=== PATIENT | male | born 1960 | race Caucasian/White ===

== ENCOUNTER 2020-09-18 21:14 | Observation (INO) | payer MEDICARE, MEDICAID, SELFPAY ==
[2020-09-18] VITALS (8 sets, daily range): BP systolic 52–93; BP diastolic 41–59; PULSE 60–76; RESP 15–24; TEMP 36.7–37.1; O2SAT 94–99; BMI 35.6
--- NOTE | 2020-09-18 21:40 | EKG12_ITS ---
Test Reason : DIZZINESS Blood Pressure : / mmHG Vent. Rate : 074 BPM Atrial Rate : 074 BPM P-R Int : 152 ms QRS Dur : 102 ms QT Int : 376 ms P-R-T Axes : 062 031 039 degrees QTc Int : 417 ms Normal sinus rhythm Normal ECG Confirmed by EVELYN REAL, MANUEL ([id number]), video news editor GIN LAROSE ([id number]) on 09/20/2020 1:17:48 PM Referred By: BRENNEN Confirmed By:MANUEL RIVAS MD
--- NOTE | 2020-09-18 21:43 | EDS_ITS ---
HPI History of Present Illness Chief Complaint: Dizziness Informant: patient Narrative Narrative: 60-year-old male presenting with lightheadedness and diaphoresis which he states has been having for about a month. He states it is worse with standing. He states that every night he sweats himself to sleep. He states he is not having any chest pain. He states he is currently residing at a residence where he has been laying in bed for a month. He has decreased p.o. intake. He is unsure if he had a fever. 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 He had a skin graft for this. He is not on any chemotherapy currently. Patient does take narcotic pain medication. Patient also states he takes medication for blood pressure. [facility] Medical History Bulging discs Home Medications fexofenadine [Jocelin] 180 mg PO DAILY 09/18/20 [History Last Taken Unknown] hydrochlorothiazide 25 mg PO DAILY 09/18/20 [History Last Taken Unknown] levothyroxine 50 mcg PO DAILY 09/18/20 [History Last Taken Unknown] lisinopril 20 mg PO DAILY 09/18/20 [History Last Taken Unknown] methocarbamol 500 mg PO TID 09/18/20 [History Last Taken Unknown] oxycodone 10 mg PO Q4H PRN 09/18/20 [History Last Taken Unknown] oxycodone [OxyContin] 10 mg PO BID 09/18/20 [History Last Taken Unknown] pregabalin 200 mg PO BID 09/18/20 [History Last Taken Unknown] Allergy/AdvReac Type Severity Reaction Status Date / Time No Known Allergies Allergy Verified 09/18/20 21:15 Social History Smoking Status: Current every day smoker ROS ROS ED Constitutional Constitutional ED: Reports sweats; Denies fever(s) or weight loss Eyes Eyes: Denies blurry vision or change in vision ENT ENT ED: Denies ear pain or rhinorrhea Cardiovascular Cardiovascular: Reports palpitations and other Details: Lightheadedness. ; Denies chest pain Respiratory/Chest Respiratory/Chest: Reports dyspnea; Denies cough or sputum Gastrointestinal Gastrointestinal: Denies abdominal pain, diarrhea, nausea or vomiting Genitourinary Genitourinary ED: Denies dysuria or hematuria Musculoskeletal Musculoskeletal: Denies arthralgias or myalgias Integumentary Denies abscess or rash Neurologic Neurologic: Denies headache(s), paresthesias or weakness Psychiatric Psychiatric: Denies suicidal ideation or suicidal thoughts Endocrine Endocrinology: Denies polydipsia or polyuria EXAM Physical Exam Const Vital Signs: 09/18/20 21:15 09/18/20 21:29 09/18/20 21:40 Temperature 98.0 F 98.5 F Temperature Source Temporal Oral Pulse Rate 76 74 76 Respiratory Rate 15 24 H 24 H Respiratory Pattern Blood Pressure 65/43 L 52/43 L 75/52 L Blood Pressure Mean 50 46 59 Pulse Ox 98 96 Oxygen Delivery Method Room Air Room Air Room Air Oxygen Flow Rate (L/min) 09/18/20 22:15 09/18/20 23:07 09/18/20 23:08 Temperature 98.5 F 98.8 F 98.8 F Temperature Source Oral Oral Oral Pulse Rate 69 60 60 Respiratory Rate 24 H 20 H 20 H Respiratory Pattern Tachypnea Blood Pressure 68/59 L 86/55 L 86/55 L Blood Pressure Mean 62 65 65 Pulse Ox 94 94 Oxygen Delivery Method Room Air Room Air Oxygen Flow Rate (L/min) 09/18/20 23:34 09/18/20 23:52 Temperature 98.4 F Temperature Source Oral Pulse Rate 61 61 Respiratory Rate 20 H 18 Respiratory Pattern Blood Pressure 93/51 L 71/41 L Blood Pressure Mean 65 51 Pulse Ox 99 99 Oxygen Delivery Method Room Air Nasal Cannula Oxygen Flow Rate (L/min) 2 Positive obese General Appearance ED: diaphoretic; Negative for pallor Nutritional Appearance: obese HEENT Negative for trauma or tenderness Eyes Negative for PERRL or EOMs intact bilaterally Neck Neck Narrative: Large skin graft on the right side of the neck without signs of infection. Chest Wall inspection of chest normal and palpation of chest normal Resp normal respiratory effort and clear to auscultation bilaterally Cardio regular rate and regular rhythm GI normal to inspection, nondistended, normoactive bowel sounds and non-tender Palpation: soft Extremity General Extremety ED: Yes edema; Negative for tenderness General Extremity: edema Neuro oriented x3 and CN's II-XII intact bilaterally Sensorium / Orientation: alert Psych mental status grossly normal Attitude: No agitated Mood & Affect: Negative for tearful Skin no rashes or lesions noted General Skin Exam: Negative for jaundice or pallor MDM MDM MDM Narrative Medical decision making narrative: 60-year-old male presenting for evaluation of lightheadedness. He is found to be hypotensive upon arrival to the ER. He does state on reevaluation that he has been living on and off at 2 different houses. He states that for the about the last month he has been staying at one friend's house sleeping in the living room. He states that he has decreased p.o. intake as he initially stated but he did state that he can eat. He states he still drinking and making urine. He denies chest pain, abdominal pain, fevers. He arrives with his friend that he has been staying with for the last day and he states he was able to eat today. He takes his blood pressure medications at formerly [facility] and has not taken them since last night. EKG is normal sinus rhythm at 74 bpm without signs of ischemic planes or heart block. Chest x-ray is interpreted by myself shows no acute cardiopulmonary process. Radiology does agree. Patient's lab work shows that he has no leukocytosis. Hemoglobin 14.8. Platelets 189. CMP shows normal LFTs and a creatinine of 3.22. This is new. Patient required multiple evaluations due to hypotension and required 3 L of fluids to get him up to 101/69. He feels more comfortable now. CPK is also elevated 64. Lactic acid 2.3. TSH is normal.UA pending on admission. Spoke with hospitalist will admit patient to PCU. Impression: 1. Hypotension 2. Acute renal failure Lab Data Labs: Laboratory Results - last 24 hr 09/18/20 09/18/20 09/18/20 21:42 21:42 21:42 WBC 6.4 RBC 5.15 Hgb 14.8 Hct 44.4 MCV 86.2 MCH 28.7 MCHC 33.3 RDW Std Deviation 47.0 H RDW Coeff of Waldo 14.7 H Plt Count 189 MPV 12.0 Immature Gran % (Auto) 0.500 Neut % (Auto) 79.3 H Lymph % (Auto) 8.4 L Swisher % (Auto) 11.1 H Eos % (Auto) 0.2 Baso % (Auto) 0.5 Absolute Neuts (auto) 5.1 Absolute Lymphs (auto) 0.54 L Nucleated RBC % 0 Differential Comment SCANNED PT 12.4 INR 1.0 APTT 35.0 Sodium Cancelled Potassium Cancelled Chloride Cancelled Carbon Dioxide Cancelled Anion Gap Cancelled BUN Cancelled Creatinine Cancelled Estim Creat Clear Calc Cancelled Est GFR (MDRD) Af Amer Cancelled Est GFR (MDRD) Non-Af Cancelled BUN/Creatinine Ratio Cancelled Glucose Cancelled Lactic Acid Calcium Cancelled Total Bilirubin Cancelled AST Cancelled ALT Cancelled Alkaline Phosphatase Cancelled Total Creatine Kinase Troponin I Cancelled Total Protein Cancelled Albumin Cancelled Globulin Cancelled Albumin/Globulin Ratio Cancelled TSH Cancelled Urine Opiates Screen Urine Methadone Screen Ur Barbiturates Screen Ur Phencyclidine Scrn Ur Amphetamines Screen U Methamphetamin-MDMA U Benzodiazepines Scrn Urine Cocaine Screen U Cannabinoids Screen Ur Drug Screen Comment Ethyl Alcohol 09/18/20 09/18/20 09/18/20 21:42 21:42 22:30 WBC RBC Hgb Hct MCV MCH MCHC RDW Std Deviation RDW Coeff of Waldo Plt Count MPV Immature Gran % (Auto) Neut % (Auto) Lymph % (Auto) Swisher % (Auto) Eos % (Auto) Baso % (Auto) Absolute Neuts (auto) Absolute Lymphs (auto) Nucleated RBC % Differential Comment PT INR APTT Sodium Potassium Chloride Carbon Dioxide Anion Gap BUN Creatinine Estim Creat Clear Calc Est GFR (MDRD) Af Amer Est GFR (MDRD) Non-Af BUN/Creatinine Ratio Glucose Lactic Acid 2.3 H* Calcium Total Bilirubin AST ALT Alkaline Phosphatase Total Creatine Kinase Cancelled Troponin I Total Protein Albumin Globulin Albumin/Globulin Ratio TSH Urine Opiates Screen Urine Methadone Screen Ur Barbiturates Screen Ur Phencyclidine Scrn Ur Amphetamines Screen U Methamphetamin-MDMA U Benzodiazepines Scrn Urine Cocaine Screen U Cannabinoids Screen Ur Drug Screen Comment Ethyl Alcohol < 3.0 09/18/20 09/18/20 23:00 23:30 WBC RBC Hgb Hct MCV MCH MCHC RDW Std Deviation RDW Coeff of Waldo Plt Count MPV Immature Gran % (Auto) Neut % (Auto) Lymph % (Auto) Swisher % (Auto) Eos % (Auto) Baso % (Auto) Absolute Neuts (auto) Absolute Lymphs (auto) Nucleated RBC % Differential Comment PT INR APTT Sodium 136 Potassium 3.7 Chloride 102 Carbon Dioxide 26.0 Anion Gap 8 BUN 46 H Creatinine 3.22 H Estim Creat Clear Calc 24.70 Est GFR (MDRD) Af Amer 26 L Est GFR (MDRD) Non-Af 21 L BUN/Creatinine Ratio 14.3 Glucose 118 H Lactic Acid Calcium 7.6 L Total Bilirubin 0.30 AST 50 H ALT 29 Alkaline Phosphatase 86 Total Creatine Kinase 664 H Troponin I < 0.015 Total Protein 6.5 Albumin 2.9 L Globulin 3.6 Albumin/Globulin Ratio 0.8 L TSH 3.74 Urine Opiates Screen POSITIVE H Urine Methadone Screen NEGATIVE Ur Barbiturates Screen NEGATIVE Ur Phencyclidine Scrn NEGATIVE Ur Amphetamines Screen NEGATIVE U Methamphetamin-MDMA NEGATIVE U Benzodiazepines Scrn NEGATIVE Urine Cocaine Screen NEGATIVE U Cannabinoids Screen POSITIVE H Ur Drug Screen Comment Ethyl Alcohol Radiography Diagnostic Testing: Radiology Impression Chest X-Ray 09/18/20 22:25 IMPRESSION: There are findings consistent with COPD. There is no evidence of acute chest disease. Electronically Signed: Villa Medina MD at 23:31 EDT , Service support , Discharge Plan Triage Chief Complaint: Dizziness ED Provider: Dann Christensen Dx/Rx/DC Orders Prescriptions: No Action methocarbamol 500 mg Tablet 500 mg PO TID RF: 0 lisinopril 20 mg Tablet 20 mg PO DAILY RF: 0 fexofenadine [Jocelin] 180 mg Tablet 180 mg PO DAILY RF: 0 levothyroxine 50 mcg Tablet 50 mcg PO DAILY RF: 0 hydrochlorothiazide 25 mg Tablet 25 mg PO DAILY RF: 0 pregabalin 200 mg Capsule 200 mg PO BID RF: 0 oxycodone 10 mg Tablet 10 mg PO Q4H PRN (Reason: Pain) RF: 0 oxycodone [OxyContin] 10 mg Tablet,Oral Only,Ext.Rel.12 Hr 10 mg PO BID RF: 0
[2020-09-18] MEDS: 0.9% Normal Saline 1,000 ML 999 ML IV ×3 (21:45→23:52)
[2020-09-18 22:01] LABS: Absolute Lymphocyte Count 0.54 X10^3/uL (0.83-4.51); Absolute Neutrophil Count 5.1 X10^3/uL (2.0-7.7); Basophil# 0.03 X10^3/uL; Basophil% 0.5 % (0-1); Eosinophil# 0.01 X10^3/uL; Eosinophils% 0.2 % (0-5); Hematocrit 44.4 % (40-54); Hemoglobin 14.8 g/dL (13.0-16.5); Lymphocyte # 0.54 X10^3/ul (0.83-4.51); Lymphocyte % 8.4 % (19-41); Mean Corp Hgb Conc 33.3 g/dL (32-36); Mean Corpuscular Hgb 28.7 pg (27.0-32.0); Mean Corpuscular Volume 86.2 fL (80-94); Monocyte# 0.71 X10^3/uL; Monocyte% 11.1 % (0-10); NRBC Flagged by Analyzer 0 % (0-5); Neutrophil # 5.09 X10^3/uL (2.7-7.7); Neutrophil % 79.3 % (47-70); POSITIVE DIFFERENTIAL YES; Platelet Count 189 K/mm3 (150-450); RBC Distribution Width CV 14.7 % (11.6-14.6); Red Blood Count 5.15 M/mm3 (4.6-6.2); White Blood Count 6.4 K/mm3 (4.4-11.0)
[2020-09-18 22:04] LABS: Differential Indicated SCAN CRITERIA MET
[2020-09-18 22:08] LABS: Differential Comment SCANNED
[2020-09-18 22:13] LABS: Prothrombin Time (Protime)PT. 12.4 SECONDS (11.7-14.9)
--- NOTE | 2020-09-18 22:25 | RAD_ITS ---
STUDY: X-RAY CHEST REASON FOR EXAM: Male, 60 years old. hypotension TECHNIQUE: Single AP portable view of the chest. COMPARISON: None. FINDINGS: Numerous surgical clips seen in the lower right neck and overlying the entire left lung. There is hyperinflation of the lungs consistent with chronic obstructive lung disease (COPD). No infiltrates. No effusions. There is no demonstrated pleural abnormality. Normal size heart. Normal mediastinum and monae. Normal visualized pulmonary arteries. Normal visualized aortic arch and descending thoracic aorta. There are diffuse degenerative changes of the visualized thoracic spine. There is degenerative osteoarthritis of the bilateral shoulders. There is no demonstrated abnormality of the visualized soft tissue structures of the upper abdomen. RAD/Chest 1 View (Portable) IMPRESSION: There are findings consistent with COPD. There is no evidence of acute chest disease. Electronically Signed: Villa Medina MD at 23:31 EDT , Service support ,
[2020-09-18 22:33] LABS: Lactic Acid 2.3 mmol/L (0.4-1.9)
[2020-09-18 23:10] LABS: Alcohol, Blood (Medical)-Serum < 3.0 mg/dL
[2020-09-18 23:39] LABS: ALB/GLOB Ratio 0.8 RATIO (0.9-2.4); AST(SGOT) 50 U/L (15-37); Alanine Aminotransfer ALT/SGPT 29 U/L (16-61); Albumin, Serum 2.9 g/dL (3.2-5.0); Alkaline Phosphatase 86 U/L (45-117); Anion Gap 8 (5-15); BUN 46 mg/dL (7-18); BUN/Creat Ratio 14.3 RATIO (10-20); CPK Total, Creatine Kinase 664 U/L (39-308); Calcium,Total 7.6 mg/dL (8.5-10.1); Chloride 102 mmol/L (98-107); Creatinine, Serum 3.22 mg/dL (0.70-1.30); EST Glomerular Filtration Rate 21 mL/min (>60); Est Glom Filt Rate - Afr Amer 26 mL/min (>60); Globulin 3.6 g/dL (2.2-4.2); Glucose 118 mg/dL (74-106); Potassium 3.7 mmol/L (3.5-5.1); Protein, Total 6.5 g/dL (6.4-8.2); Sodium Level 136 mmol/L (136-145); Thyroid Stim Hormone (TSH) 3.74 uIU/mL (0.358-3.74)
[2020-09-18 23:41] LABS: Bacteria 0 SEEN /hpf (None Seen); Mucous, Urine 0 SEEN /hpf (<or=2+); Squamous Epithelial Cells - UA 0 SEEN /hpf (0-5); White Blood Cells 0 SEEN /hpf (0-5)
[2020-09-18 23:55] LABS: Color, Urine Yellow (Yellow); Glucose, Dipstick Normal (Normal); Ketone-Dipstick Negative (Negative); Leukocyte Esterase-Dipstick Negative /ul (Negative); Nitrite-Dipstick Negative (Negative); Occult Blood-Urine 50 /ul (Negative); Protein-Dipstick 30 mg/dl (Negative); Specific Gravity, Urine 1.015 (1.002-1.030); Urine Bilirubin Dipstick Negative (Negative); Urine Clarity Clear (Clear); Urine Urobilinogen Normal (Normal)
--- NOTE | 2020-09-18 23:57 | ED.RN ---
Spo2 reading varies from 89-99 with good waveform; likely related to low perfusion. Placed pt on 2L NC for intermittent low spo2 reading or 89-90%
[2020-09-19] VITALS (18 sets, daily range): BP systolic 84–133; BP diastolic 52–78; PULSE 57–80; RESP 16–20; TEMP 36.3–38.7; O2SAT 91–98; BMI 36.1
[2020-09-19 00:03] LABS: Amphetamine Urine VISTA NEGATIVE (<1000 ng/mL); Barbiturate Urine VISTA NEGATIVE (< 200 ng/mL); Benzodiazepine Urine VISTA NEGATIVE (< 200 ng/mL); Cocaine Urine VISTA NEGATIVE (< 300 ng/mL); Ecstacy Urine VISTA NEGATIVE (< 500 ng/mL); Methadone Urine VISTA NEGATIVE (< 300 ng/mL); PCP Urine VISTA NEGATIVE (< 25 ng/mL); THC Urine VISTA POSITIVE (< 50 ng/mL); Vista UDS pH Range 5
[2020-09-19 00:36] LABS: Amorphous Sediment 1+; Red Blood Cells-Urine 0-5 SEEN /hpf (0-5)
--- NOTE | 2020-09-19 00:38 | PCM.HP.STD ---
HPI - General HPI Narrative SALINAS SEPULVEDA, is a 60 M with a significant history of neck tumor status post resection and grafting; hypertension; and hypothyroidism who presents to the emergency department with 1 week history of progressively worsening lightheadedness. Feta patient reports hypotension. Reportedly his systolic blood pressure at home was between 68 and 88. Further patient reports lethargy to the point that he could not stay awake for 5 minutes. He reports poor appetite. Since patient was hypotensive and had a kidney injury his p.o. intake was investigated. He reported drinking enough fluids including water and soda. [facility] Medical History (Updated 09/19/20 @ 01:[address] Vincent Bryant MD) Bulging discs HTN (hypertension) Hypothyroidism Neck mass Home Medications fexofenadine [Jocelin] 180 mg PO DAILY 09/18/20 [History Last Taken Unknown] hydrochlorothiazide 25 mg PO DAILY 09/18/20 [History Last Taken Unknown] levothyroxine 50 mcg PO DAILY 09/18/20 [History Last Taken Unknown] lisinopril 20 mg PO DAILY 09/18/20 [History Last Taken Unknown] methocarbamol 500 mg PO TID 09/18/20 [History Last Taken Unknown] oxycodone 10 mg PO Q4H PRN 09/18/20 [History Last Taken Unknown] oxycodone [OxyContin] 10 mg PO BID 09/18/20 [History Last Taken Unknown] pregabalin 200 mg PO BID 09/18/20 [History Last Taken Unknown] Allergy/AdvReac Type Severity Reaction Status Date / Time No Known Allergies Allergy Verified 09/18/20 21:15 Family History Other Diabetes Hypertension Surgical History H/O neck surgery H/O skin graft Social History Smoking Status: Current every day smoker ROS ROS Narrative 12 point review of system is negative except as stated in HPI. Vital Signs Vital Signs Vital Signs: 09/18/20 21:15 09/18/20 21:29 09/18/20 21:40 Temperature 98.0 F 98.5 F Temperature Source Temporal Oral Pulse Rate 76 74 76 Respiratory Rate 15 24 H 24 H Respiratory Pattern Blood Pressure 65/43 L 52/43 L 75/52 L Blood Pressure Mean 50 46 59 Pulse Ox 98 96 Oxygen Delivery Method Room Air Room Air Room Air Oxygen Flow Rate (L/min) 09/18/20 22:15 09/18/20 23:07 09/18/20 23:08 Temperature 98.5 F 98.8 F 98.8 F Temperature Source Oral Oral Oral Pulse Rate 69 60 60 Respiratory Rate 24 H 20 H 20 H Respiratory Pattern Tachypnea Blood Pressure 68/59 L 86/55 L 86/55 L Blood Pressure Mean 62 65 65 Pulse Ox 94 94 Oxygen Delivery Method Room Air Room Air Oxygen Flow Rate (L/min) 09/18/20 23:34 09/18/20 23:52 09/19/20 00:30 Temperature 98.4 F 98.7 F Temperature Source Oral Oral Pulse Rate 61 61 60 Respiratory Rate 20 H 18 20 H Respiratory Pattern Blood Pressure 93/51 L 71/41 L 97/74 Blood Pressure Mean 65 51 81 Pulse Ox 99 99 96 Oxygen Delivery Method Room Air Nasal Cannula Nasal Cannula Oxygen Flow Rate (L/min) 2 2 Physical Exam Narrative Alert and oriented x3 Nontraumatic; normocephalic; neck with skin grafts. Lung clear to auscultate Heart sounds S1-S2. No murmur, gallop or rubs. Abdomen bowel sounds present soft, nontender nondistended Extremity without edema cyanosis or clubbing. Neurology: Dysarthria; facial droop. (Dysarthria; facial droop - chronic attributed to history of neck surgery). Lab / Micro Data Result Diagrams: 09/18/20 21:42 09/18/20 23:00 Labs: Laboratory Results - last 24 hr 09/18/20 09/18/20 09/18/20 21:42 21:42 21:42 WBC 6.4 RBC 5.15 Hgb 14.8 Hct 44.4 MCV 86.2 MCH 28.7 MCHC 33.3 RDW Std Deviation 47.0 H RDW Coeff of Waldo 14.7 H Plt Count 189 MPV 12.0 Immature Gran % (Auto) 0.500 Neut % (Auto) 79.3 H Lymph % (Auto) 8.4 L Sharp % (Auto) 11.1 H Eos % (Auto) 0.2 Baso % (Auto) 0.5 Absolute Neuts (auto) 5.1 Absolute Lymphs (auto) 0.54 L Nucleated RBC % 0 Differential Comment SCANNED PT 12.4 INR 1.0 APTT 35.0 Sodium Cancelled Potassium Cancelled Chloride Cancelled Carbon Dioxide Cancelled Anion Gap Cancelled BUN Cancelled Creatinine Cancelled Estim Creat Clear Calc Cancelled Est GFR (MDRD) Af Amer Cancelled Est GFR (MDRD) Non-Af Cancelled BUN/Creatinine Ratio Cancelled Glucose Cancelled Lactic Acid Calcium Cancelled Total Bilirubin Cancelled AST Cancelled ALT Cancelled Alkaline Phosphatase Cancelled Total Creatine Kinase Troponin I Cancelled Total Protein Cancelled Albumin Cancelled Globulin Cancelled Albumin/Globulin Ratio Cancelled TSH Cancelled Urine Color Urine Clarity Urine pH Ur Specific [place] Urine Protein Urine Glucose (UA) Urine Ketones Urine Occult Blood Urine Nitrite Urine Bilirubin Urine Urobilinogen Ur Leukocyte Esterase Urine RBC Urine WBC Ur Squamous Epith Cells Amorphous Sediment Urine Bacteria Urine Mucus Urine Opiates Screen Urine Methadone Screen Ur Barbiturates Screen Ur Phencyclidine Scrn Ur Amphetamines Screen U Methamphetamin-MDMA U Benzodiazepines Scrn Urine Cocaine Screen U Cannabinoids Screen Ur Drug Screen Comment Ethyl Alcohol 09/18/20 09/18/20 09/18/20 21:42 21:42 22:30 WBC RBC Hgb Hct MCV MCH MCHC RDW Std Deviation RDW Coeff of Waldo Plt Count MPV Immature Gran % (Auto) Neut % (Auto) Lymph % (Auto) Sharp % (Auto) Eos % (Auto) Baso % (Auto) Absolute Neuts (auto) Absolute Lymphs (auto) Nucleated RBC % Differential Comment PT INR APTT Sodium Potassium Chloride Carbon Dioxide Anion Gap BUN Creatinine Estim Creat Clear Calc Est GFR (MDRD) Af Amer Est GFR (MDRD) Non-Af BUN/Creatinine Ratio Glucose Lactic Acid 2.3 H* Calcium Total Bilirubin AST ALT Alkaline Phosphatase Total Creatine Kinase Cancelled Troponin I Total Protein Albumin Globulin Albumin/Globulin Ratio TSH Urine Color Urine Clarity Urine pH Ur Specific [place] Urine Protein Urine Glucose (UA) Urine Ketones Urine Occult Blood Urine Nitrite Urine Bilirubin Urine Urobilinogen Ur Leukocyte Esterase Urine RBC Urine WBC Ur Squamous Epith Cells Amorphous Sediment Urine Bacteria Urine Mucus Urine Opiates Screen Urine Methadone Screen Ur Barbiturates Screen Ur Phencyclidine Scrn Ur Amphetamines Screen U Methamphetamin-MDMA U Benzodiazepines Scrn Urine Cocaine Screen U Cannabinoids Screen Ur Drug Screen Comment Ethyl Alcohol < 3.0 09/18/20 09/18/20 09/18/20 23:00 23:30 23:30 WBC RBC Hgb Hct MCV MCH MCHC RDW Std Deviation RDW Coeff of Waldo Plt Count MPV Immature Gran % (Auto) Neut % (Auto) Lymph % (Auto) Sharp % (Auto) Eos % (Auto) Baso % (Auto) Absolute Neuts (auto) Absolute Lymphs (auto) Nucleated RBC % Differential Comment PT INR APTT Sodium 136 Potassium 3.7 Chloride 102 Carbon Dioxide 26.0 Anion Gap 8 BUN 46 H Creatinine 3.22 H Estim Creat Clear Calc 24.70 Est GFR (MDRD) Af Amer 26 L Est GFR (MDRD) Non-Af 21 L BUN/Creatinine Ratio 14.3 Glucose 118 H Lactic Acid Calcium 7.6 L Total Bilirubin 0.30 AST 50 H ALT 29 Alkaline Phosphatase 86 Total Creatine Kinase 664 H Troponin I < 0.015 Total Protein 6.5 Albumin 2.9 L Globulin 3.6 Albumin/Globulin Ratio 0.8 L TSH 3.74 Urine Color Yellow Urine Clarity Clear Urine pH 5.0 Ur Specific [place] 1.015 Urine Protein 30 H Urine Glucose (UA) Normal Urine Ketones Negative Urine Occult Blood 50 H Urine Nitrite Negative Urine Bilirubin Negative Urine Urobilinogen Normal Ur Leukocyte Esterase Negative Urine RBC 0-5 SEEN Urine WBC 0 SEEN Ur Squamous Epith Cells 0 SEEN Amorphous Sediment 1+ Urine Bacteria 0 SEEN Urine Mucus 0 SEEN Urine Opiates Screen POSITIVE H Urine Methadone Screen NEGATIVE Ur Barbiturates Screen NEGATIVE Ur Phencyclidine Scrn NEGATIVE Ur Amphetamines Screen NEGATIVE U Methamphetamin-MDMA NEGATIVE U Benzodiazepines Scrn NEGATIVE Urine Cocaine Screen NEGATIVE U Cannabinoids Screen POSITIVE H Ur Drug Screen Comment Ethyl Alcohol Radiology Impression Chest X-Ray 09/18/20 22:25 IMPRESSION: There are findings consistent with COPD. There is no evidence of acute chest disease. Electronically Signed: Villa Medina MD at 23:31 EDT , Service support , Assessment & Plan Assessment/Plan (1) Hypotension: QUALIFIERS: Hypotension type: hypotension due to hypovolemia Qualified Code(s): I95.89 - Other hypotension; E86.1 - Hypovolemia (2) ANDRE (acute kidney injury): PLAN: Hypotension review of emergency department vitals shows initial systolic blood pressure in the 70s. Received 3 L normal saline bolus at emergency department with good response. We will continue patient on normal saline infusion at 100 mL/h. Trend blood pressures Hold home lisinopril and hydrochlorothiazide. Admit to progressive care unit on telemetry. Lactic acidosis Likely secondary to hypoperfusion from hypovolemia. Trend. IV fluids as above. ANDRE Creatinine on presentation was 3.22. BUN 46. BUN over creatinine 14.3. Likely prerenal entering into intrinsic renal. Likely secondary to hypovolemia. Avoid nephrotoxins. Decrease dose of pregabalin. Hold hydrochlorothiazide and lisinopril Trend BMP. Hypothyroidism TSH normal Synthroid continued Visit Charges Inpatient E&M: 24570 Init Hosp L3
[2020-09-19 01:55] LABS: Reflex Lactate? Y
[2020-09-19 02:20] LABS: Absolute Lymphocyte Count 0.57 X10^3/uL (0.83-4.51); Absolute Neutrophil Count 2.7 X10^3/uL (2.0-7.7); Basophil# 0.02 X10^3/uL; Basophil% 0.5 % (0-1); Differential Indicated SCAN CRITERIA MET; Hemoglobin 13.8 g/dL (13.0-16.5); Lymphocyte # 0.57 X10^3/ul (0.83-4.51); Mean Corp Hgb Conc 32.9 g/dL (32-36); Mean Corpuscular Hgb 28.6 pg (27.0-32.0); Mean Corpuscular Volume 87.1 fL (80-94); Mean Platelet Vol. 11.7 fl (6.2-12.0); Monocyte# 0.52 X10^3/uL; Monocyte% 13.7 % (0-10); NRBC Flagged by Analyzer 0 % (0-5); Neutrophil # 2.67 X10^3/uL (2.7-7.7); Neutrophil % 70.3 % (47-70); POSITIVE DIFFERENTIAL YES; Platelet Count 153 K/mm3 (150-450); RBC Distribution Width CV 14.8 % (11.6-14.6); RBC Distribution Width SD 47.8 fl (35.1-43.9); Red Blood Count 4.82 M/mm3 (4.6-6.2); White Blood Count 3.8 K/mm3 (4.4-11.0)
[2020-09-19 02:56] LABS: Anion Gap 9 (5-15); BUN 42 mg/dL (7-18); BUN/Creat Ratio 18.3 RATIO (10-20); Calcium,Total 7.7 mg/dL (8.5-10.1); Chloride 105 mmol/L (98-107); EST Glomerular Filtration Rate 31 mL/min (>60); Est Glom Filt Rate - Afr Amer 38 mL/min (>60); Estimated Creatinine Clearance 34.58 ml/min; Glucose 116 mg/dL (74-106); Potassium 3.2 mmol/L (3.5-5.1); Sodium Level 137 mmol/L (136-145)
[2020-09-19] MEDS: 0.9% Normal Saline 1,000 ML 100 ML IV ×3 (03:31→20:37)
[2020-09-19] MEDS: Heparin Injection (Vial) 5,000 UNIT/ML VIAL 5000 UNIT SC ×3 (06:13→21:15)
[2020-09-19] MEDS: Levothyroxine 50 MCG Tablet PO (06:13)
[2020-09-19] MEDS: Loratadine 10 MG Tablet PO (09:50)
[2020-09-19] MEDS: Pregabalin 50 MG Capsule 100 MG PO ×2 (09:51→21:11)
[2020-09-19] MEDS: oxyCODONE HCl Cr 10 MG Tablet PO ×2 (09:52→21:12)
--- NOTE | 2020-09-19 10:52 | PCM.PN.HOSP ---
Documented by User: Marion Gimenez NP, ASSISTANT SUPERINTENDENT FOR CURRICULUM-C 09/19/20 11:04 Subjective Subjective: Patient seen and examined. Denies further lightheadedness. Blood pressure improved. Orthostatic vitals negative. Objective Data Objective Data Vital Signs: Vital Signs Temp Pulse Resp BP Pulse Ox 98.6 F 74 16 96/63 97 09/19/20 09:14 09/19/20 10:45 09/19/20 09:14 09/19/20 09:19 09/19/20 09:14 Oxygen Flow Rate (L/min) 2 Oxygen Delivery Method Room Air Weight: 244 lb 14.937 oz Body Mass Index (BMI) 36.1 Orthostatic Vital Signs Start: 09/19/20 09:19 Freq: q24h Status: Active Protocol: Activity Type Activity Date Activity User E-Sign Co-Sign Detail Recorded Client Recorded Date Recorded By Document 09/19/20 09:19 [facility] [id number] 09/19/20 09:32 [facility] 09/19/20 09:19 Orthostatic Vitals Standing -Blood Pressure (90/60-120/80) 102/62 -Extremity Use Left Arm -Pulse Rate (60-100) 70 Sitting -Blood Pressure (90/60-120/80) 103/60 -Extremity Use Left Arm -Pulse Rate (60-100) 67 Lying -Blood Pressure (90/60-120/80) 96/63 -Extremity Use Left Arm -Pulse Rate (60-100) 63 Intake & Output: Intake and Output for Last 24 Hours 09/17/20 09/18/20 09/19/20 23:59 23:59 23:59 Intake Total 1999 1400 / 1400 Balance 1999 1400 / 1400 Lab / Micro Data Result Diagrams: 09/19/20 02:12 09/19/20 02:12 Labs: Laboratory Results - last 24 hr 09/18/20 09/18/20 09/18/20 21:42 21:42 21:42 WBC 6.4 RBC 5.15 Hgb 14.8 Hct 44.4 MCV 86.2 MCH 28.7 MCHC 33.3 RDW Std Deviation 47.0 H RDW Coeff of Waldo 14.7 H Plt Count 189 MPV 12.0 Immature Gran % (Auto) 0.500 Neut % (Auto) 79.3 H Lymph % (Auto) 8.4 L [place] % (Auto) 11.1 H Eos % (Auto) 0.2 Baso % (Auto) 0.5 Absolute Neuts (auto) 5.1 Absolute Lymphs (auto) 0.54 L Nucleated RBC % 0 Differential Comment SCANNED Diff Path Review PT 12.4 INR 1.0 APTT 35.0 Sodium Cancelled Potassium Cancelled Chloride Cancelled Carbon Dioxide Cancelled Anion Gap Cancelled BUN Cancelled Creatinine Cancelled Estim Creat Clear Calc Cancelled Est GFR (MDRD) Af Amer Cancelled Est GFR (MDRD) Non-Af Cancelled BUN/Creatinine Ratio Cancelled Glucose Cancelled Lactic Acid Calcium Cancelled Total Bilirubin Cancelled AST Cancelled ALT Cancelled Alkaline Phosphatase Cancelled Total Creatine Kinase Troponin I Cancelled Total Protein Cancelled Albumin Cancelled Globulin Cancelled Albumin/Globulin Ratio Cancelled TSH Cancelled Urine Color Urine Clarity Urine pH Ur Specific [place] Urine Protein Urine Glucose (UA) Urine Ketones Urine Occult Blood Urine Nitrite Urine Bilirubin Urine Urobilinogen Ur Leukocyte Esterase Urine RBC Urine WBC Ur Squamous Epith Cells Amorphous Sediment Urine Bacteria Urine Mucus Urine Opiates Screen Urine Methadone Screen Ur Barbiturates Screen Ur Phencyclidine Scrn Ur Amphetamines Screen U Methamphetamin-MDMA U Benzodiazepines Scrn Urine Cocaine Screen U Cannabinoids Screen Ur Drug Screen Comment Ethyl Alcohol 09/18/20 09/18/20 09/18/20 21:42 21:42 22:30 WBC RBC Hgb Hct MCV MCH MCHC RDW Std Deviation RDW Coeff of Waldo Plt Count MPV Immature Gran % (Auto) Neut % (Auto) Lymph % (Auto) [place] % (Auto) Eos % (Auto) Baso % (Auto) Absolute Neuts (auto) Absolute Lymphs (auto) Nucleated RBC % Differential Comment Diff Path Review PT INR APTT Sodium Potassium Chloride Carbon Dioxide Anion Gap BUN Creatinine Estim Creat Clear Calc Est GFR (MDRD) Af Amer Est GFR (MDRD) Non-Af BUN/Creatinine Ratio Glucose Lactic Acid 2.3 H* Calcium Total Bilirubin AST ALT Alkaline Phosphatase Total Creatine Kinase Cancelled Troponin I Total Protein Albumin Globulin Albumin/Globulin Ratio TSH Urine Color Urine Clarity Urine pH Ur Specific [place] Urine Protein Urine Glucose (UA) Urine Ketones Urine Occult Blood Urine Nitrite Urine Bilirubin Urine Urobilinogen Ur Leukocyte Esterase Urine RBC Urine WBC Ur Squamous Epith Cells Amorphous Sediment Urine Bacteria Urine Mucus Urine Opiates Screen Urine Methadone Screen Ur Barbiturates Screen Ur Phencyclidine Scrn Ur Amphetamines Screen U Methamphetamin-MDMA U Benzodiazepines Scrn Urine Cocaine Screen U Cannabinoids Screen Ur Drug Screen Comment Ethyl Alcohol < 3.0 09/18/20 09/18/20 09/18/20 23:00 23:30 23:30 WBC RBC Hgb Hct MCV MCH MCHC RDW Std Deviation RDW Coeff of Waldo Plt Count MPV Immature Gran % (Auto) Neut % (Auto) Lymph % (Auto) [place] % (Auto) Eos % (Auto) Baso % (Auto) Absolute Neuts (auto) Absolute Lymphs (auto) Nucleated RBC % Differential Comment Diff Path Review PT INR APTT Sodium 136 Potassium 3.7 Chloride 102 Carbon Dioxide 26.0 Anion Gap 8 BUN 46 H Creatinine 3.22 H Estim Creat Clear Calc 24.70 Est GFR (MDRD) Af Amer 26 L Est GFR (MDRD) Non-Af 21 L BUN/Creatinine Ratio 14.3 Glucose 118 H Lactic Acid Calcium 7.6 L Total Bilirubin 0.30 AST 50 H ALT 29 Alkaline Phosphatase 86 Total Creatine Kinase 664 H Troponin I < 0.015 Total Protein 6.5 Albumin 2.9 L Globulin 3.6 Albumin/Globulin Ratio 0.8 L TSH 3.74 Urine Color Yellow Urine Clarity Clear Urine pH 5.0 Ur Specific [place] 1.015 Urine Protein 30 H Urine Glucose (UA) Normal Urine Ketones Negative Urine Occult Blood 50 H Urine Nitrite Negative Urine Bilirubin Negative Urine Urobilinogen Normal Ur Leukocyte Esterase Negative Urine RBC 0-5 SEEN Urine WBC 0 SEEN Ur Squamous Epith Cells 0 SEEN Amorphous Sediment 1+ Urine Bacteria 0 SEEN Urine Mucus 0 SEEN Urine Opiates Screen POSITIVE H Urine Methadone Screen NEGATIVE Ur Barbiturates Screen NEGATIVE Ur Phencyclidine Scrn NEGATIVE Ur Amphetamines Screen NEGATIVE U Methamphetamin-MDMA NEGATIVE U Benzodiazepines Scrn NEGATIVE Urine Cocaine Screen NEGATIVE U Cannabinoids Screen POSITIVE H Ur Drug Screen Comment Ethyl Alcohol 09/19/20 09/19/20 09/19/20 02:12 02:12 02:12 WBC 3.8 L RBC 4.82 Hgb 13.8 Hct 42.0 MCV 87.1 MCH 28.6 MCHC 32.9 RDW Std Deviation 47.8 H RDW Coeff of Waldo 14.8 H Plt Count 153 MPV 11.7 Immature Gran % (Auto) 0.500 Neut % (Auto) 70.3 H Lymph % (Auto) 15.0 L [place] % (Auto) 13.7 H Eos % (Auto) 0.0 Baso % (Auto) 0.5 Absolute Neuts (auto) 2.7 Absolute Lymphs (auto) 0.57 L Nucleated RBC % 0 Differential Comment Diff Path Review May foll PT INR APTT Sodium 137 Potassium 3.2 L Chloride 105 Carbon Dioxide 23.0 Anion Gap 9 BUN 42 H Creatinine 2.30 H Estim Creat Clear Calc 34.58 Est GFR (MDRD) Af Amer 38 L Est GFR (MDRD) Non-Af 31 L BUN/Creatinine Ratio 18.3 Glucose 116 H Lactic Acid 1.0 Calcium 7.7 L Total Bilirubin AST ALT Alkaline Phosphatase Total Creatine Kinase Troponin I Total Protein Albumin Globulin Albumin/Globulin Ratio TSH Urine Color Urine Clarity Urine pH Ur Specific [place] Urine Protein Urine Glucose (UA) Urine Ketones Urine Occult Blood Urine Nitrite Urine Bilirubin Urine Urobilinogen Ur Leukocyte Esterase Urine RBC Urine WBC Ur Squamous Epith Cells Amorphous Sediment Urine Bacteria Urine Mucus Urine Opiates Screen Urine Methadone Screen Ur Barbiturates Screen Ur Phencyclidine Scrn Ur Amphetamines Screen U Methamphetamin-MDMA U Benzodiazepines Scrn Urine Cocaine Screen U Cannabinoids Screen Ur Drug Screen Comment Ethyl Alcohol Radiography Diagnostic Testing: Radiology Impression Chest X-Ray 09/18/20 22:25 IMPRESSION: There are findings consistent with COPD. There is no evidence of acute chest disease. Electronically Signed: Villa Medina MD at 23:31 EDT , Service support , Assessment & Plan Assessment/Plan (1) Hypotension: QUALIFIERS: Hypotension type: hypotension due to hypovolemia Qualified Code(s): I95.89 - Other hypotension; E86.1 - Hypovolemia PLAN: 1. Acute kidney injury-improving with IV fluids. Trend BMP. Unclear baseline. Possible component of CKD. 2. Hypotension, secondary to hypovolemia/ANDRE-improved. BP regimen on hold. Orthostatic vitals negative. 3. Lactic acidosis-secondary to #1, resolved with IV fluids. 4. Hypertension-lisinopril, HCTZ on hold. 5. Hypothyroidism-continue Synthroid regimen. 6. Chronic pain syndrome-on Lyrica, as needed oxycodone. 7. 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 8. Tobacco dependence-encouraged cessation. Nicotine replacement patch. DVT prophylaxis-heparin subcu This patient was seen by INES Carson under the supervision of Dr. Pastor. Documented by User: Dr. Hal Pastor MD 09/19/20 13:28 Subjective Subjective: Seen and examined. Patient states his urine color was dark but no change in amount. He was not eating or drinking. 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 Has difficulty in swallowing and sometimes coughing with risk of aspiration. Objective Data Lab / Micro Data Result Diagrams: 09/19/20 02:12 09/19/20 02:12 Assessment & Plan Assessment/Plan (1) Hypotension: QUALIFIERS: Hypotension type: hypotension due to hypovolemia Qualified Code(s): I95.89 - Other hypotension; E86.1 - Hypovolemia (2) ANDRE (acute kidney injury): PLAN: This patient was seen in conjunction with Marion CAMARILLO. I have independently interviewed and examined the patient and reviewed pertinent history, examination findings, laboratory and plan of management. I have reviewed the note and agree with the documented findings with the few additional points. In brief, patient is a 60-year-old male with history of squamous cell carcinoma head and neck probably tongue; status post resection and skin graft came to ED with hypovolemia, hypotension, lactic acidosis and acute kidney injury. Patient is still undergoing IV fluid resuscitation and lactic acidosis resolved. Orthostatic vitals are negative. No signs or symptoms of sepsis therefore ruled out. Creatinine is improving. Patient also on chronic opioids as an outpatient. Patient states sometimes he has cough and choking on eating therefore possible aspiration. Speech therapy evaluation ordered. Other comorbidities as mentioned above I have discussed my assessment with Marion CAMARILLO and orders have been reviewed. Visit Charges Inpatient E&M: 14155 Subs Hosp L2
[2020-09-19] MEDS: BACITRACIN 15 GM Tube 1 APPLIC TOPICAL (14:08)
[2020-09-19] MEDS: 0.9% Saline Lock 10 ML Syringe IV (17:55)
[2020-09-19] MEDS: Acetaminophen 325 MG Tablet 650 MG PO (21:11)
--- NOTE | 2020-09-19 21:27 | NURSING ---
shahrzad de jesus notified of fever of 101.1. No new orders received ast this time. Pt was given tylenol.
[2020-09-20] VITALS (8 sets, daily range): BP systolic 88–126; BP diastolic 55–85; PULSE 59–84; RESP 16–18; TEMP 36.7–37.4; O2SAT 92–97
--- NOTE | 2020-09-20 00:04 | NURSING ---
Sandra Salvador was notified of blood pressure reading. Order received for 500 ml bolus x1
--- NOTE | 2020-09-20 01:18 | NURSING ---
Sandra Salvador was notified of most recent blood pressure. No new orders received at this time.
--- NOTE | 2020-09-20 03:26 | NURSING ---
Dr Kaur was notified of low bp, and updated on fever from earlier. Order for bolus received. CXR, Blood cultures, and Urine culture orders were also received. placed pt on stepdown vs monitor for closer monitoring at this time. Pt is drowsy but awakens easily. Instructed on need for urine sample
--- NOTE | 2020-09-20 03:35 | RAD_ITS ---
STUDY: X-RAY CHEST REASON FOR EXAM: Male, 60 years old. fever, ordering wants to compare this chest xray with the xray from yesterday, concern for pneumonia. TECHNIQUE: Single AP portable view of the chest. COMPARISON: 09/18/2020. FINDINGS: There is increased density in the right upper lung field when compared with previous study, suspicious for right upper lobe pneumonia.. There is mild atelectasis in the left lung base. There is no demonstrated pleural abnormality. Normal size heart. Normal mediastinum and monae. Normal visualized aortic arch and descending thoracic aorta. There are no demonstrated acute fractures or destructive bone lesions. There is no demonstrated abnormality of the visualized soft tissue structures of the upper abdomen. RAD/Chest 1 View (Portable) IMPRESSION: Increased density in the right upper lung field, compared to previous study. Findings suggest right upper lobe pneumonia. New finding of a small focus of atelectasis in the left lung base.. Electronically Signed: Shad Prieto MD at 5:35 EDT , Service support ,
[2020-09-20 03:43] LABS: Absolute Lymphocyte Count 0.68 X10^3/uL (0.83-4.51); Absolute Neutrophil Count 1.9 X10^3/uL (2.0-7.7); Basophil# 0.02 X10^3/uL; Basophil% 0.7 % (0-1); Eosinophil# 0.01 X10^3/uL; Eosinophils% 0.3 % (0-5); Hematocrit 39.3 % (40-54); Hemoglobin 12.7 g/dL (13.0-16.5); Lymphocyte # 0.68 X10^3/ul (0.83-4.51); Lymphocyte % 22.9 % (19-41); Mean Corp Hgb Conc 32.3 g/dL (32-36); Mean Corpuscular Hgb 29.1 pg (27.0-32.0); Mean Corpuscular Volume 89.9 fL (80-94); Mean Platelet Vol. 11.7 fl (6.2-12.0); Monocyte# 0.34 X10^3/uL; Monocyte% 11.4 % (0-10); NRBC Flagged by Analyzer 0 % (0-5); Neutrophil # 1.92 X10^3/uL (2.7-7.7); Neutrophil % 64.7 % (47-70); Platelet Count 121 K/mm3 (150-450); RBC Distribution Width CV 15.1 % (11.6-14.6); RBC Distribution Width SD 50.5 fl (35.1-43.9); Red Blood Count 4.37 M/mm3 (4.6-6.2)
[2020-09-20 04:00] LABS: Anion Gap 6 (5-15); BUN 24 mg/dL (7-18); BUN/Creat Ratio 26.2 RATIO (10-20); Calcium,Total 7.3 mg/dL (8.5-10.1); Chloride 108 mmol/L (98-107); Creatinine, Serum 0.92 mg/dL (0.70-1.30); EST Glomerular Filtration Rate 90 mL/min (>60); Est Glom Filt Rate - Afr Amer 109 mL/min (>60); Estimated Creatinine Clearance 86.45 ml/min; Glucose 92 mg/dL (74-106); Potassium 3.2 mmol/L (3.5-5.1); Sodium Level 134 mmol/L (136-145)
[2020-09-20 04:07] LABS: Lactic Acid 0.8 mmol/L (0.4-1.9)
[2020-09-20 04:18] LABS: Color, Urine Yellow (Yellow); Glucose, Dipstick Normal (Normal); Ketone-Dipstick 5 mg/dl (Negative); Leukocyte Esterase-Dipstick Negative /ul (Negative); Nitrite-Dipstick Negative (Negative); Occult Blood-Urine 250 /ul (Negative); Protein-Dipstick 30 mg/dl (Negative); Urine Bilirubin Dipstick Negative (Negative); Urine Clarity Clear (Clear); Urine Urobilinogen Normal (Normal)
[2020-09-20 04:19] LABS: Mucous, Urine 0 SEEN /hpf (<or=2+); Squamous Epithelial Cells - UA 0 SEEN /hpf (0-5); White Blood Cells 0 SEEN /hpf (0-5)
[2020-09-20 04:24] LABS: Bacteria RARE /hpf (None Seen); Red Blood Cells-Urine 0-5 SEEN /hpf (0-5)
--- NOTE | 2020-09-20 04:58 | NURSING ---
Dr Bryant notified of lab results viewed x-ray report. Order received to stop IV fluids and to give 40 meq po k.
[2020-09-20] MEDS: Levothyroxine 50 MCG Tablet PO (05:22)
[2020-09-20] MEDS: Potassium Chloride Oral Tablet 20 MEQ 40 MEQ PO ×2 (05:22→09:43)
[2020-09-20] MEDS: Heparin Injection (Vial) 5,000 UNIT/ML VIAL 5000 UNIT SC (05:23)
[2020-09-20] MEDS: Methocarbamol 500 MG Tablet PO (05:25)
[2020-09-20] MEDS: Loratadine 10 MG Tablet PO (08:24)
[2020-09-20] MEDS: BACITRACIN 15 GM Tube 1 APPLIC TOPICAL (08:24)
[2020-09-20] MEDS: Pregabalin 50 MG Capsule 100 MG PO (08:26)
--- NOTE | 2020-09-20 10:42 | DCINST_ITS ---
Discharge Instructions Diet Discharge Diet: Low fat / Low cholesterol Activity Discharge Activity: Return to Normal Activity Dressing / Incision Call your doctor if you observe: Shortness of breath, Dizziness and Chest pain Follow Up Care Test Results: Test results from this visit will be discussed in further detail at your follow-up appointment, if applicable. Discharge Plan Admission Admit Date/Time: 09/19/20 00:31 Attending Provider: Frantz Kulkarni Additional Instructions / Restrictions: As discussed, check blood pressure twice daily. Record blood pressure readings and take to PCP at 1 week follow-up. You will need repeat BMP to assess p otassium/kidney function within 1 week. Discharge Orders/Prescriptions Prescriptions: Continued methocarbamol 500 mg Tablet 500 mg PO DAILY RF: 0 fexofenadine 180 mg Tablet 180 mg PO DAILY RF: 0 levothyroxine 50 mcg Tablet 50 mcg PO DAILY RF: 0 pregabalin 200 mg Capsule 200 mg PO BID RF: 0 oxycodone 10 mg Tablet 10 mg PO Q4H PRN (Reason: Pain) RF: 0 oxycodone [OxyContin] 10 mg Tablet,Oral Only,Ext.Rel.12 Hr 10 mg PO BID RF: 0 Discontinued lisinopril 20 mg Tablet 20 mg PO DAILY RF: 0 hydrochlorothiazide 25 mg Tablet 25 mg PO DAILY RF: 0 Referrals / Follow Up: LION DAMIAN [Other] (Follow up in one week) Disposition Disposition (needs filled in before D/C Order can be placed): Home, self care
--- NOTE | 2020-09-20 10:50 | DS.PCM_ITS ---
Documented by User: Marion Gimenez NP, SUSTAINABILITY PROJECT COORDINATOR-C 09/20/20 10:59 Providers Date of Admission: 09/19/20 Primary Care Physician: LION DAMIAN Reason For Visit: HYPOTENSION; ANDRE Diagnosis Discharge Diagnosis (1) Hypotension: Status: Acute Code(s): I95.9 - Hypotension, unspecified Qualifiers: Hypotension type: hypotension due to hypovolemia Qualified Code(s): I95.89 - Other hypotension; E86.1 - Hypovolemia (2) ANDRE (acute kidney injury): Status: Acute Code(s): N17.9 - Acute kidney failure, unspecified Medications at Discharge Home Medications fexofenadine 180 mg PO DAILY 09/18/20 levothyroxine 50 mcg PO DAILY 09/18/20 methocarbamol 500 mg PO DAILY 09/18/20 oxycodone 10 mg PO Q4H PRN 09/18/20 oxycodone [OxyContin] 10 mg PO BID 09/18/20 pregabalin 200 mg PO BID 09/18/20 Hospital Course Operations None Procedures None Summary of Care Provided Minutes Spent on Discharge: 35 Hospital Course: Patient is a 60-year-old male admitted 09/19/2020 due to lightheadedness and low blood pressure. 1. Acute kidney injury- resolved with IV fluids. Presumed secondary to HCTZ, dehydration. Recommend repeat BMP in 1 week. 2. Hypotension, secondary to hypovolemia/ANDRE-improved. Orthostatic vitals negative. Continue to hold lisinopril/HCTZ at discharge as blood pressure has been 90s to 100 systolically. Instructed patient to check blood pressure twice daily at home and document findings for PCP follow-up in 1 week. 3. Lactic acidosis-secondary to #1, resolved with IV fluids. 4. Hypertension-lisinopril, HCTZ on hold. 5. Hypothyroidism-continue Synthroid regimen. 6. Chronic pain syndrome-on Lyrica, as needed oxycodone. 7. 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 8. Tobacco dependence-encouraged cessation. Patient seen and examined prior to discharge. Physical assessment as noted below. Patient is stable for discharge with follow up recommendations as noted above. This patient was seen by Marion Gimenez NP-C under the supervision of Dr. Kulkarni. Physical Exam Const alert, oriented x3 and no apparent distress Orientation / Consciousness: awake, oriented to person, oriented to place and oriented to time HEENT normocephalic and moist oral mucous membranes Eyes PERRL, EOMs intact bilaterally and conjunctivae normal Neck no lymphadenopathy Resp normal respiratory effort and clear to auscultation bilaterally Cardio regular rate, regular rhythm and no murmurs Peripheral Pulses: pulses 2+ throughout GI normal to inspection, nondistended, normoactive bowel sounds, non-tender and non -distended Extremity normal to inspection Skin no rashes or lesions noted Lesions: no lesions Rashes: no rashes Trauma: no lacerations or abrasions Neuro oriented x3 Sensorium / Orientation: awake and alert Psych affect normal ABG / Lab / Microbiology Data Result Diagrams: 09/20/20 03:32 09/20/20 03:32 Laboratory: Laboratory Results - last 24 hr 09/20/20 09/20/20 09/20/20 03:32 03:32 03:32 WBC 3.0 L RBC 4.37 L Hgb 12.7 L Hct 39.3 L MCV 89.9 MCH 29.1 MCHC 32.3 RDW Std Deviation 50.5 H RDW Coeff of Waldo 15.1 H Plt Count 121 L MPV 11.7 Immature Gran % (Auto) 0.000 Neut % (Auto) 64.7 Lymph % (Auto) 22.9 [place] % (Auto) 11.4 H Eos % (Auto) 0.3 Baso % (Auto) 0.7 Absolute Neuts (auto) 1.9 L Absolute Lymphs (auto) 0.68 L Nucleated RBC % 0 Sodium 134 L Potassium 3.2 L Chloride 108 H Carbon Dioxide 20.0 L Anion Gap 6 BUN 24 H Creatinine 0.92 Estim Creat Clear Calc 86.45 Est GFR (MDRD) Af Amer 109 Est GFR (MDRD) Non-Af 90 BUN/Creatinine Ratio 26.2 H Glucose 92 Lactic Acid 0.8 Calcium 7.3 L Urine Color Urine Clarity Urine pH Ur Specific [place] Urine Protein Urine Glucose (UA) Urine Ketones Urine Occult Blood Urine Nitrite Urine Bilirubin Urine Urobilinogen Ur Leukocyte Esterase Urine RBC Urine WBC Ur Squamous Epith Cells Urine Bacteria Urine Mucus 09/20/20 04:00 WBC RBC Hgb Hct MCV MCH MCHC RDW Std Deviation RDW Coeff of [place]do Plt Count MPV Immature Gran % (Auto) Neut % (Auto) Lymph % (Auto) [place] % (Auto) Eos % (Auto) Baso % (Auto) Absolute Neuts (auto) Absolute Lymphs (auto) Nucleated RBC % Sodium Potassium Chloride Carbon Dioxide Anion Gap BUN Creatinine Estim Creat Clear Calc Est GFR (MDRD) Af Amer Est GFR (MDRD) Non-Af BUN/Creatinine Ratio Glucose Lactic Acid Calcium Urine Color Yellow Urine Clarity Clear Urine pH 6.0 Ur Specific [place] 1.020 Urine Protein 30 H Urine Glucose (UA) Normal Urine Ketones 5 H Urine Occult Blood 250 H Urine Nitrite Negative Urine Bilirubin Negative Urine Urobilinogen Normal Ur Leukocyte Esterase Negative Urine RBC 0-5 SEEN Urine WBC 0 SEEN Ur Squamous Epith Cells 0 SEEN Urine Bacteria RARE Urine Mucus 0 SEEN Microbiology: Microbiology 09/18/20 23:30 Urine Culture - Preliminary Urine, Clean Catch Culture exhibits no growth. Microbiology 09/18/20 23:30 Urine, Clean Catch Urine Culture - Preliminary Culture exhibits no growth. Radiography Diagnostic Testing: Radiology Impression Chest X-Ray 09/20/20 03:35 IMPRESSION: Increased density in the right upper lung field, compared to previous study. Findings suggest right upper lobe pneumonia. New finding of a small focus of atelectasis in the left lung base.. Electronically Signed: Shad Prieto MD at 5:35 EDT , Service support , D/C Instructions Discharge Diet: Low fat / Low cholesterol Discharge Activity: Return to Normal Activity Call your doctor if you observe: Shortness of breath, Dizziness and Chest pain Meaningful Use Info Meaningful Use Diagnoses (Choose all that apply): None applicable Discharge Plan Admission Admit Date/Time: 09/19/20 00:31 Attending Provider: Frantz Kulkarni Instructions Additional Instructions / Restrictions: As discussed, check blood pressure twice daily. Record blood pressure readings and take to PCP at 1 week follow-up. You will need repeat BMP to assess potassium/kidney function within 1 week. Discharge Orders/Prescriptions Prescriptions: Continued methocarbamol 500 mg Tablet 500 mg PO DAILY RF: 0 fexofenadine 180 mg Tablet 180 mg PO DAILY RF: 0 levothyroxine 50 mcg Tablet 50 mcg PO DAILY RF: 0 pregabalin 200 mg Capsule 200 mg PO BID RF: 0 oxycodone 10 mg Tablet 10 mg PO Q4H PRN (Reason: Pain) RF: 0 oxycodone [OxyContin] 10 mg Tablet,Oral Only,Ext.Rel.12 Hr 10 mg PO BID RF: 0 Discontinued lisinopril 20 mg Tablet 20 mg PO DAILY RF: 0 hydrochlorothiazide 25 mg Tablet 25 mg PO DAILY RF: 0 Referrals / Follow Up: LION DAMIAN [Other] (Follow up in one week) Disposition Disposition (needs filled in before D/C Order can be placed): Home, self care Documented by User: Dr. Frantz Kulkarni DO 09/21/20 18:43 Providers Date of Admission: 09/19/20 Reason For Visit: HYPOTENSION; ANDRE Medications at Discharge Home Medications fexofenadine 180 mg PO DAILY 09/18/20 levothyroxine 50 mcg PO DAILY 09/18/20 methocarbamol 500 mg PO DAILY 09/18/20 oxycodone 10 mg PO Q4H PRN 09/18/20 oxycodone [OxyContin] 10 mg PO BID 09/18/20 pregabalin 200 mg PO BID 09/18/20 ABG / Lab / Microbiology Data Result Diagrams: 09/20/20 03:32 09/20/20 03:32 Discharge Plan Admission Admit Date/Time: 09/19/20 00:31 Attending Provider: Frantz Kulkarni Instructions Additional Instructions / Restrictions: As discussed, check blood pressure twice daily. Record blood pressure readings and take to PCP at 1 week follow-up. You will need repeat BMP to assess pota ssium/kidney function within 1 week. Discharge Orders/Prescriptions Prescriptions: Continued methocarbamol 500 mg Tablet 500 mg PO DAILY RF: 0 fexofenadine 180 mg Tablet 180 mg PO DAILY RF: 0 levothyroxine 50 mcg Tablet 50 mcg PO DAILY RF: 0 pregabalin 200 mg Capsule 200 mg PO BID RF: 0 oxycodone 10 mg Tablet 10 mg PO Q4H PRN (Reason: Pain) RF: 0 oxycodone [OxyContin] 10 mg Tablet,Oral Only,Ext.Rel.12 Hr 10 mg PO BID RF: 0 Discontinued lisinopril 20 mg Tablet 20 mg PO DAILY RF: 0 hydrochlorothiazide 25 mg Tablet 25 mg PO DAILY RF: 0 Referrals / Follow Up: LION DAMIAN [Other] (Follow up in one week) Disposition Disposition (needs filled in before D/C Order can be placed): Home, self care Addendum Addendum: Patient was seen and examined on 09/20/2020 independently of Marion Gimenez, he appears to be stable for discharge at this time. On examination he appeared in good health and spirits. Vital signs as documented. Skin warm and dry and without overt rashes. Neck without JVD, neck was supple, trachea midline, thyroid was normal. Lungs clear bilaterally, normal air movement was noted. Heart exam notable for regular rhythm, normal sounds and absence of murmurs, rubs or gallops. Abdomen unremarkable and without evidence of organomegaly, masses, or abdominal aortic enlargement. Bowel sounds are present, abdomen is not distended. Extremities nonedematous, no cyanosis was noted, no clubbing was noted. Neuro: Cranial nerves II through XII are grossly intact, no focal motor deficits were noted, sensation to light touch and pinprick intact, motor exam 5/5 throughout. Psych: Patient is alert and oriented x3, he does not appear anxious or depressed, he does not appear agita melquiades. I have reviewed Marion Gimenez's discharge summary including her medical assessment and plan of care and endorse it. Visit Charges Inpatient E&M: 15541 Disch Hosp
--- NOTE | 2020-09-20 10:52 | PHA.DC.MR ---
Pharmacy Service has performed discharge medication reconciliation for this patient. The patient's discharge medication list was reviewed for discrepancies and discrepancies were resolved. Home Medications fexofenadine 180 mg PO DAILY 09/18/20 levothyroxine 50 mcg PO DAILY 09/18/20 methocarbamol 500 mg PO DAILY 09/18/20 oxycodone 10 mg PO Q4H PRN 09/18/20 oxycodone [OxyContin] 10 mg PO BID 09/18/20 pregabalin 200 mg PO BID 09/18/20
--- NOTE | 2020-09-20 11:11 | CASEMGMT ---
DELFINA HARDY Assessment: Face to Face with pt for initial transition planning/care coordination assessment. DELFINA HARDY introduced self and role at [facility], pt voices understanding and consents to assessment. Pt is A/O x4 and answers all questions appropriately at this time. Pt sitting up in bed with 3 visitors at bedside. Pt states it is ok to continue with assessment with visitors in room. Care providers, pharmacy, and demographics verified/updated. Admitting Dx: Hypotension, ANDRE PCP: Kalpesh Specialists: Pt denies specialists Preferred Pharmacy: [facility] in [place]. States he will use [facility] while here. Insurance: [employer] [facility] [place] Prescription Benefit: yes LW/HPOA: Pt denies having a LW/DPOA. LNOK: Friend Anuj Remi Living Arrangements: Pt lives in a ground level apt with one step to enter alone. Pt denies concerns at home. Transportation: Pt drives self. Denies concerns with transportation. DME/HHC/SNF: Pt states at his home he has a cane. States he is going to stay [place]. At his home there is a cane, walker, rollator, w/c available for pt. Pt has previously had [facility] and been in Rehab at [facility]. Pt states no concerns with going home at time of dc. Pt states no further concerns/needs. CM to follow. Advised pt to ask CM if any further question/concerns/needs arise, voices understanding. Pt Goal: Home Plan: Home with friend support.
[2020-09-20 13:32] LABS: Pathologist Review Reviewed
== END 2020-09-20 13:23 | disposition home or self-care (01) | DRG 683 ==
LOC: ED 22:23 → PCU 09-19 07:42
PROVIDERS: Admitting Provider Hospitalist; Emergency Provider Student in an Organized Health Care Education/Training Program; Visit Provider Internal Medicine
DX: N17.9 Acute kidney failure, unspecified (principal); E87.2 Acidosis; E86.0 Dehydration; I95.89 Other hypotension; E03.9 Hypothyroidism, unspecified; E86.1 Hypovolemia; G89.4 Chronic pain syndrome; I10 Essential (primary) hypertension; J44.9 Chronic obstructive pulmonary disease, unspecified; F17.200 Nicotine dependence, unspecified, uncomplicated; Z79.899 Other long term (current) drug therapy; Z85.828 Personal history of other malignant neoplasm of skin
CPT/HCPCS: 36415; 71045; 80048; 80053; 80307; 81001; 82077; 82550; 83605; 84443; 84484; 85025; 85610; 85730; 87040; 87086; 87088; 92610; 93005; 96360; 96361; 96372; 97802; 99218; 99285; J7030; J7040; A4216; G0378